=== PATIENT | female | born 1985 | race Caucasian/White ===

== ENCOUNTER 2024-03-10 14:33 | Emergency (ER) | payer OTHER ==
[2024-03-10] MEDS ORDERED: HYDROCODONE/APAP 7.5/325 MG TAB ONE (15:14)
--- NOTE | 2024-03-10 16:18 | RAD REPORT ---
EXAM DESCRIPTION: RAD - Ankle Left 3 View - 03/10/2024 4:00 pm CLINICAL HISTORY: PAIN COMPARISON: <Comparisons> FINDINGS: Moderate soft tissue swelling is seen along the lateral aspect of the ankle. Tiny plantar calcaneal spur. No acute fracture or dislocation seen.
--- NOTE | 2024-03-10 16:28 | ER ---
Nurse's Notes [facility] Name: Shonna Mitchell Age: 38 yrs Sex: Female : 1985 Arrival Date: 03/10/2024 Time: 14:33 Bed 10 Private MD: Diagnosis: Sprain of unspecified ligament of left ankle, initial encounter Presentation: 03/10 14:52 Chief complaint: Patient states: Twisted left ankle and fell last night, pain is worse. aa5 Took tylenol last night with no significant relief. Coronavirus screen: Vaccine status: Patient reports being unvaccinated. Ebola Screen: Patient denies travel to an Ebola-affected area in the 21 days before illness onset. Initial Sepsis Screen: Does the patient meet any 2 criteria? No. Patient's initial sepsis screen is negative. Does the patient have a suspected source of infection? No. Patient's initial sepsis screen is negative. Risk Assessment: Do you want to hurt yourself or someone else? Patient reports no desire to harm self or others. Onset of symptoms was March 09, 2024. 14:52 Method Of Arrival: Wheelchair aa5 14:52 Acuity: ISAIAH 3 aa5 Triage Assessment: 15:11 General: Appears uncomfortable, Behavior is cooperative. Injury Description: fell last kj2 night and felt asnd hurt left foot/ankle. 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 - Infectious Disease History:: Denies. - Social history:: Smoking status: Reported history of juuling and/or vaping. Screenin:09 [facility] ED Fall Risk Assessment (Adult) History of falling in the last 3 months, kj2 including since admission Yes- single mechanical fall (1 pt) Confusion or Disorientation No (0 pts) Intoxicated or Sedated No (0 pts) Impaired Gait No (0 pts) Mobility Assist Device Used Yes (1 pt) Altered Elimination No (0 pt) Score/Fall Risk Level 0 - 2 = Low Risk. Abuse screen: Denies threats or abuse. Denies injuries from another. Nutritional screening: No deficits noted. Tuberculosis screening: No symptoms or risk factors identified. Assessment: 15:07 General: Appears uncomfortable, Behavior is calm, cooperative. Pain: Complains of pain kj2 in left foot Pain currently is 10 out of 10 on a pain scale. Neuro: Level of Consciousness is awake, alert, Oriented to person, place, time, situation. Cardiovascular: Patient's skin is warm and dry. Respiratory: Airway is patent Respiratory effort is even, unlabored. GI: No deficits noted. : No deficits noted. Musculoskeletal: Reports pain in left foot. Vital Signs: 14:52 BP 124 / 62; Pulse 87; Resp 16; Temp 96.2(O); Pulse Ox 98% ; Weight 83.91 kg; Height 5 aa5 ft. 2 in. ; Pain 7/10; 15:07 BP 102 / 89; Pulse 86; Resp 18; Temp 98.2; Pulse Ox 100% on R/A; kj2 16:41 BP 134 / 81; Pulse 88; Resp 20; Temp 98; Pulse Ox 100% ; kj2 14:52 Body Mass Index 33.84 (83.91 kg, 157.48 cm) aa5 14:52 Pain Scale: Adult aa5 ED Course: 14:45 Patient arrived in ED. ra3 14:46 [facility]. jh7 14:46 Vahid Weaver MD is Attending Physician. jh7 14:54 Triage completed. aa5 14:55 Arm band placed on right wrist. aa5 14:58 Constance Arreola, MERT is Primary Nurse. kj2 15:10 Patient has correct armband on for positive identification. Call light in reach. Adult kj2 w/ patient. Provided Education on: call light, fall precautions. 16:02 XRAY Ankle LEFT 3 view In Process Unspecified. EDMS 16:35 No provider procedures requiring assistance completed. kj2 16:37 Patient did not have IV access during this emergency room visit. kj2 Administered Medications: 15:18 Drug: Hydrocodone-Acetaminophen PO (7.5 mg-325 mg) 1 tabs PO once Route: PO; kj2 16:00 Follow up: Response: No adverse reaction; Pain is decreased kj2 Medication: 15:10 VIS not applicable for this client. kj2 Outcome: 16:27 Discharge ordered by . francine 16:35 Discharged to home via wheelchair, with family, kj2 16:35 Condition: stable 16:35 Discharge instructions given to patient, Instructed on discharge instructions, follow up and referral plans. medication usage, Demonstrated understanding of instructions, follow-up care, medications, Prescriptions given X 1, 17:23 Patient left the ED. kj2 Signatures: Dispatcher [employer] EDSandrine Mendez, RN RN aa5 Shantel Nathan FNP MARRIAGE COUNSELOR jorge7 Ludivina Moscoso 3 Constance Arreola, RN RN kj2
--- NOTE | 2024-03-10 16:28 | EDPHYS ---
Physician Documentation [facility] Name: Shonna Mitchell Age: 38 yrs Sex: Female : 1985 Arrival Date: 03/10/2024 Time: 14:33 Bed 10 Private MD: ED Physician Vahid Weaver HPI: 03/10 14:54 This 38 yrs old Female presents to ER via Wheelchair with complaints of Foot Injury. [facility] 14:54 38-year-old female with no significant past medical history presents to the ER [facility] complaining of left ankle injury. The patient reports that last night she slipped on a curb and twisted her left ankle. Complains of swelling, bruising, and inability to bear weight.. 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 - Infectious Disease History:: Denies. - Social history:: Smoking status: Reported history of juuling and/or vaping. ROS: 14:54 Constitutional: Per HPI [facility] Exam: 14:54 Constitutional: This is a well developed, well nourished patient who is awake, alert, jh7 and in no acute distress. Head/Face: Normocephalic, atraumatic. Cardiovascular: Regular rate and rhythm with a normal S1 and S2. No gallops, murmurs, or rubs. Normal PMI, no JVD. No pulse deficits. Respiratory: Lungs have equal breath sounds bilaterally, clear to auscultation and percussion. No rales, rhonchi or wheezes noted. No increased work of breathing, no retractions or nasal flaring. Abdomen/GI: Soft, non-tender, with normal bowel sounds. No distension or tympany. No guarding or rebound. No evidence of tenderness throughout. Skin: Warm, dry with normal turgor. Normal color with no rashes, no lesions, and no evidence of cellulitis. Neuro: Awake and alert, GCS 15, oriented to person, place, time, and situation. Sensory grossly intact. Antalgic gait. 14:54 Musculoskeletal/extremity: Extremities: noted in the left ankle: contusion, decreased ROM, pain, swelling, ROM: limited active range of motion, in the left ankle, Circulation is intact in all extremities. Pulses: are normal with no appreciated deficits, Perfusion: the extremity is normally perfused throughout, pink, warm, with brisk capillary refill, Sensation intact. Moderate bruising and swelling noted over the left lateral malleolus.. Vital Signs: 14:52 BP 124 / 62; Pulse 87; Resp 16; Temp 96.2(O); Pulse Ox 98% ; Weight 83.91 kg; Height 5 aa5 ft. 2 in. ; Pain 7/10; 15:07 BP 102 / 89; Pulse 86; Resp 18; Temp 98.2; Pulse Ox 100% on R/A; kj2 16:41 BP 134 / 81; Pulse 88; Resp 20; Temp 98; Pulse Ox 100% ; kj2 14:52 Body Mass Index 33.84 (83.91 kg, 157.48 cm) aa 14:52 Pain Scale: Adult aa5 MDM: 14:46 Patient medically screened. [facility] 16:30 Differential diagnosis: closed fracture, contusion, Sprain. Data reviewed: vital signs, [facility] nurses notes, radiologic studies, plain films. I considered the following discharge prescriptions or medication management in the emergency department Medications were administered in the Emergency Department. See MAR. Independent interpretation of the following test(s) in the Emergency Department X-Ray: My interpretation is no acute fracture. Counseling: I had a detailed discussion with the patient and/or guardian regarding the historical points, exam findings, and any diagnostic results supporting the discharge/admit diagnosis, the need for outpatient follow up, a orthopedic surgeon, if symptoms persist, to return to the emergency department if symptoms worsen or persist or if there are any questions or concerns that arise at home. Response to treatment: the patient's symptoms have mildly improved after treatment. 03/10 14:58 Order name: XRAY Ankle LEFT 3 view; Complete Time: 16:23 [facility] 03/10 16:28 Order name: Walking boot; Complete Time: 17:15 [facility] 03/10 16:28 Order name: Crutches; Complete Time: 17:15 [facility] Administered Medications: 15:18 Drug: Hydrocodone-Acetaminophen PO (7.5 mg-325 mg) 1 tabs PO once Route: PO; kj2 16:00 Follow up: Response: No adverse reaction; Pain is decreased kj2 Disposition: 20:08 Co-signature as Attending Physician, Vahid Weaver MD I reviewed the patient's care rt provided by the Advanced Practice Provider and agree with the diagnosis and treatment plan. Disposition Summary: 03/10/24 16:27 Discharge Ordered Notes: Location: Home [facility] Problem: new [facility] Symptoms: are unchanged [facility] Condition: Stable [facility] Diagnosis - Sprain of unspecified ligament of left ankle, initial encounter [facility] Followup: [facility] - With: Private Physician - When: 2 - 3 days - Reason: Recheck today's complaints Discharge Instructions: - Discharge Summary Sheet [facility] - Ankle Sprain [facility] - Crutch Use, Adult [facility] Forms: - Medication Reconciliation Form [facility] - Patient Portal Instructions [facility] - Leadership Thank You Letter [facility] Prescriptions: - Naprosyn 500 mg Oral Tablet - take 1 tablet ORAL route 2 times per day take with food; 30 tablet; Refills: 0, jh7 Product Selection Permitted Signatures: Dispatcher [employer] Sandrine Encinas, RN RN aa5 Shantel Nathan, PEDIATRIC CRITICAL CARE NURSE PEDIATRIC CRITICAL CARE NURSE jh7 Vahid Weaver MD MD rt Constance Arreola RN RN kj2 Corrections: (The following items were deleted from the chart) 15:21 14:54 This 38 yrs old Female presents to ER via Wheelchair with complaints of Foot jh7 Injury. [facility]
[2024-03-10 19:16] VITALS: O2SAT 100
[2024-03-10 19:17] VITALS: BP 134/81; TEMP 98
== END 2024-03-10 17:23 | disposition home or self-care (01) ==
LOC: ER 14:33
DX: S93.402A Sprain of unspecified ligament of left ankle, initial encounter (principal)
CPT/HCPCS: 99283